=== PATIENT | male | born 1995 | race Caucasian/White ===

== ENCOUNTER → 2017-06-03 | Outpatient (CLI) | payer BC ==
[2013-08-07 04:05] VITALS: BP 138/71
[~2017-06-03] MED LIST: METHYLPHENIDATE20 M9 PO; VYVANSE20 MG PO
[2017-06-03 20:19] LABS: URINE WBC 0 /hpf (0-3)
[2017-06-03 21:31] LABS: URINE APPEARANCE HAZY; URINE COLOR YELLOW
[2017-06-03 21:32] LABS: URINE BILIRUBIN NEGATIVE (NEGATIVE); URINE BLOOD NEGATIVE (NEGATIVE); URINE GLUCOSE NEGATIVE (NEGATIVE); URINE KETONE NEGATIVE (NEGATIVE); URINE LEUKOCYTE ESTERASE NEGATIVE (NEGATIVE); URINE NITRATE NEGATIVE (NEGATIVE); URINE PROTEIN(semi-quant) NEGATIVE (NEGATIVE); URINE UROBILINOGEN NORMAL (NORMAL)
== END ==
LOC: LAB 15:03
PROVIDERS: Nurse Practitioner Family
DX: R35.0 Frequency of micturition (principal)